=== PATIENT | female | born 1975 | race Caucasian/White ===

== ENCOUNTER 2021-06-08 14:41 | Emergency (ER) | payer OTHER | END 2021-06-08 17:09 | disposition home or self-care (01) | LOC: ER1 14:41 | DX: S52.001A Unspecified fracture of upper end of right ulna, initial encounter for closed fracture (principal); W01.0XXA Fall on same level from slipping, tripping and stumbling without subsequent striking against object, initial encounter | CPT/HCPCS: 29105; 29125; 72125; 72131; 73080; 99283 ==

== ENCOUNTER 2021-11-21 12:17 | Emergency (ER) | payer OTHER | END 2021-11-21 14:58 | disposition home or self-care (01) | LOC: ER1 12:17 | DX: S80.01XA Contusion of right knee, initial encounter (principal); Z88.1 Allergy status to other antibiotic agents; W01.10XA Fall on same level from slipping, tripping and stumbling with subsequent striking against unspecified object, initial encounter; Y92.89 Other specified places as the place of occurrence of the external cause; Y99.0 Civilian activity done for income or pay | CPT/HCPCS: 73564; 99283 ==